=== PATIENT | male | born 1985 | race Caucasian/White ===

== ENCOUNTER 2021-09-14 22:13 | Emergency (ER) | payer OTHER ==
[~2021-09-14] VITALS: Ht 177.8 cm; Wt 81.6 kg
[2021-09-15 03:41] VITALS: BP 122/88
== END 2021-09-15 04:54 | disposition home or self-care (01) ==
LOC: ER 22:13
DX: S51.811A Laceration without foreign body of right forearm, initial encounter (principal); W26.8XXA Contact with other sharp object(s), not elsewhere classified, initial encounter; Y93.89 Activity, other specified; Y92.89 Other specified places as the place of occurrence of the external cause; Y99.8 Other external cause status
CPT/HCPCS: 12004

== ENCOUNTER 2023-12-25 19:47 | Emergency (ER) | payer OTHER ==
[~2023-12-25] VITALS: Ht 177.8 cm; Wt 173.0 kg
[~2023-12-25 19:47] MED LIST: CEPH500C PO; IBUP-1456 PO
[2023-12-25 21:17] VITALS: BP 115/76; PULSE 133; RESP 18; TEMP 97.6; O2SAT 96
[2023-12-25] MEDS: IBUPROFEN 600 MG TAB PO ONE (22:25)
[2023-12-25] MEDS: HYDROcodone-ACET 5/325MG TAB PO ONE (22:25)
[2023-12-25] MEDS ORDERED: IBUP-1456 PO (22:29)
== END 2023-12-25 22:35 | disposition home or self-care (01) ==
LOC: ER 19:47
DX: S60.221A Contusion of right hand, initial encounter (principal); F17.210 Nicotine dependence, cigarettes, uncomplicated; Z79.899 Other long term (current) drug therapy; W51.XXXA Accidental striking against or bumped into by another person, initial encounter; Y93.89 Activity, other specified; Y92.524 Gas station as the place of occurrence of the external cause; Y99.8 Other external cause status
CPT/HCPCS: 73130